=== PATIENT | female | born 1975 | race Caucasian/White ===

== ENCOUNTER 2023-06-21 20:02 | Outpatient (REF) | payer OTHER, SELFPAY ==
[2023-06-28 08:07] LABS: Age Gdln ACOG Testing Note (.); HPV Aptima Negative (Negative); IGP, Aptima HPV, rfx 16/18,45 Note (.)
== END 2023-06-21 20:03 | disposition home or self-care (01) ==
LOC: LAB 20:02
PROVIDERS: Visit Provider Physician Assistant
DX: Z01.419 Encounter for gynecological examination (general) (routine) without abnormal findings (principal)
CPT/HCPCS: 87624; G0145

== ENCOUNTER 2023-06-28 08:56 | Outpatient (OUT) | payer OTHER, SELFPAY ==
--- NOTE | 2023-06-28 | US_ITS ---
[address] [address] Patient Name: EDD ALVA MRN: [id number] date: 1975 Sex: F Assigned Patient Location: Current Patient Location: Accession/Order Number: [id number] Exam Date: 06/28/2023 08:57 Report Date: 06/28/2023 09:46 At the request of: ROBERTO CAMARENA Procedure: US pelvis w/ transvaginal EXAMINATION: US pelvis w/ transvaginal HISTORY: LOWER PELVIC PAIN R10.2 COMPARISON: No relevant comparison available. TECHNIQUE: Transabdominal and/or transvaginal sonographic examination was performed as indicated by examination type. FINDINGS: UTERUS: Normal size and appearance. Uterus size: 11.9 x 4.0 x 4.4 cm ENDOMETRIUM: Normal homogeneous appearance. Endometrial thickness: 12 mm RIGHT OVARY: Normal size and appearance. Duplex Doppler demonstrates normal waveform and flow; resistive index 0.6. Ovary size: 4.6 x 3.0 x 1.2 cm LEFT OVARY: Contains a dominant follicle. Duplex Doppler demonstrates normal waveform and flow; resistive index 0.8. Ovary size: 3.8 x 3.1 x 2.5 cm CUL-DE-SAC: Unremarkable. No significant free fluid. BLADDER: Unremarkable. OTHER: None. US/US pelvis w/ transvaginal IMPRESSION: 1. Endometrium is 12 mm in thickness which is abnormally thickened for a postmenopausal patient. Correlate with patient history. 2. Incidental dominant follicle within left ovary. Resistive index within left ovary is borderline elevated; nonspecific. Electronically authenticated by: JACKSON PERRY Date: 06/28/2023 09:46
--- NOTE | 2023-06-28 09:39 | XR_ITS ---
The [address] [address] Patient Name: EDD ALVA MRN: [facility]:[id number] date: 1975 Sex: F Assigned Patient Location: US Current Patient Location: US Accession/Order Number: [id number] Exam Date: 06/28/2023 09:40 Report Date: 06/28/2023 10:18 At the request of: ROBERTO CAMARENA Procedure: XR DEXA axial skeleton EXAMINATION: XR DEXA axial skeleton HISTORY: bone pain/hip pain, postmenopausal state COMPARISON: No relevant comparison available. TECHNIQUE: Dual-energy X-ray absorptiometry (DXA) was performed. FINDINGS: SPINE ANALYSIS: Average bone mineral density is 1.108 g/cm2. T-score (standard deviation relative to young adult mean): -0.6 . HIP ANALYSIS: Lowest bone mineral density is within the femoral neck, 0.971 g/cm2. T-score (standard deviation relative to young adult mean): -0.5 . XR/XR DEXA axial skeleton IMPRESSION: World Per Organization Classification: Normal - Low Fracture Risk Electronically authenticated by: JACKSON PERRY Date: 06/28/2023 10:18
== END 2023-06-28 08:57 | disposition home or self-care (01) ==
LOC: US 08:56
PROVIDERS: Visit Provider Obstetrics & Gynecology
DX: R10.2 Pelvic and perineal pain (principal); M25.551 Pain in right hip; M25.552 Pain in left hip
CPT/HCPCS: 76830; 76856; 77080

== ENCOUNTER 2024-06-25 20:57 | Outpatient (REF) | payer OTHER, SELFPAY ==
--- OUTSIDE RECORDS SUMMARY | 2024-06-25 21:00 | XMS_ITS | CCD ---
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 Name Role Phone DR ROBERTO CORONADO Admitting Unavailable DR ROBERTO CORONADO Attending Unavailable DR ROBERTO CORONADO Consulting Unavailable Meena Stevens MD Primary Care Provider Mckayla Mayers NP Unavailable MEENA STEVENS Referring Unavailable MEENA STEVENS Attending Unavailable KATIE STREET Attending Unavailable MEENA STEVENS Attending Unavailable Mckayla Mayers NP Unavailable Allergies Allergy Classification Reported Allergen(s) Allergy Type Date of Onset Reaction(s) Facility (1 source) Penicillins Drug allergy (disorder) [facility] (8 sources) Penicillin G Drug Allergy 12-21-2022 [facility] Medications Current Medications Medication Drug Class(es) Dates Sig (Normalized) Sig (Original) acetaminophen 250 mg / ibuprofen 125 mg oral tablet (8 sources) Nonsteroidal Anti-inflammatory Drug take 125-250 mg by mouth once Ibuprofen-Acetamin ophen (Advil Dual Action) 125-250 MG tablet per tablet Take by mouth. Active Ibuprofen-Acetam inophen (Advil Dual Action) 125-250 MG tablet per tablet Take by mouth. 0 Active doxycycline hyclate 100 mg oral tablet (2 sources) Tetracycline-class Drug Start: 08-16-2023 End: 08-26-2023 doxycycline (Vibra-Tabs) 100 MG tablet Indications: Acute non-recurrent maxillary sinusitis Take 1 tablet (100 mg) by mouth in the morning and 1 tablet (100 mg) before bedtime. Do all this for 10 days. Take with a full glass of water and do not lie down for at least 30 minutes after.. 20 tablet 0 08/16/2023 08/26/2023 Active Multiple Vitamin (multivitamin) capsule (7 sources) take 1 capsule by mouth in the morning Multiple Vitamin (multivitamin) capsule Take 1 capsule by mouth in the morning. Active take 1 capsule by mouth in the m orning Multiple Vitamin (multivitamin) capsule Take 1 capsule by mouth in the morning. 0 Active omeprazole 40 mg delayed release oral capsule (4 sources) Proton Pump Inhibitor Start: 05-03-2024 End: 05-03-2025 take 1 capsule by mouth before mealtime omeprazole (PriLOSEC) [address] capsule Indications: Gastroesophageal reflux disease with esophagitis without hemorrhage Take 1 capsule (40 mg) by mouth in the morning. Take before meals. Do not crush or chew.. 30 capsule 11 05/03/2024 05/03/2025 Active Completed/Discontinued Medications Medication Drug Class(es) Dates Sig (Normalized) Sig (Original) Atogepant (Qulipta) 60 MG tablet (3 sources) Start: 05-02-2023 End: 08-16-2023 take 1 tablet by mouth in the morning Atogepant (Qulipta) 60 MG tablet Indications: Intractable migraine with aura without status migrainosus (CMS/HCC) Take 60 mg by mouth in the morning. 90 tablet 3 05/02/2023 08/16/2023 Discontinued (Therapy completed) Start: 05-02-2023 take 1 tablet by julissa th in the morning Atogepant (Qulipta) 60 MG tablet Indications: Intractable migraine with aura without status migrainosus (CMS/HCC) Take 60 mg by mouth in the morning. 90 tablet 3 05/02/2023 Active meloxicam 15 mg oral tablet (8 sources) Nonsteroidal Anti-inflammatory Drug Start: 01-25-2023 End: 06-25-2024 take 1 tablet by mouth in the morning meloxicam (Mobic) 15 MG tablet Indications: Left hip pain Take 1 tablet (15 mg) by mouth in the morning. 30 tablet 3 01/25/2023 06/25/2024 Discontinued Problems Problem Classification Problem Date Documented Date Episodic/Chronic Diabetes mellitus without complication (2 sources) Hyperglycemia; Translations: [Hyperglycemia, unspecified] 05-03-2024 Episodic Esophageal disorders (2 sources) Gastro-esophageal reflux disease with esophagitis; Translations: [Gastroesophageal reflux disease with esophagitis without hemorrhage] 05-03-2024 Chronic Headache; including migraine (12 sources) Refractory migraine with aura; Translations: [Migraine with aura, intractable, without status migrainosus] Onset: 12-21-2022 12-21-2022 Chronic Immunizations and screening for infectious disease (1 source) Encounter for screening for human papillomavirus (HPV); Translations: [ENC SCREENING HUMAN PAPILLOMAVIRUS] Onset: 06-12-2022 Episodic Menstrual disorders (1 source) Dysmenorrhea; Translations: [Dysmenorrhea, unspecified] 06-25-2024 Chronic Osteoarthritis (2 sources) Osteoarthritis of multiple joints ; Translations: [Polyosteoarthritis, unspecified] 05-03-2024 Chronic Other connective tissue disease (2 sources) Trochanteric bursitis; Translations: [Trochanteric bursitis, left hip] 05-03-2024 Episodic Other endocrine disorders (1 source) Polycystic ovary syndrome; Translations: [Polycystic ovarian syndrome] 06-25-2024 Chronic Other lower respiratory disease (2 sources) Cough; Translations: [Acute cough] 08-16-2023 Episodic Other screening for suspected conditions (not mental disorders or infectious disease) (5 sources) Encounter for screening for malignant neoplasm of cervix; Translations: [Patient encounter status] Onset: 06-07-2022 Episodic Other upper respiratory infections (2 sources) Acute maxillary sinusitis; Translations: [Acute maxillary sinusitis, unspecified] 08-16-2023 Episodic Results Test Name Value Interpretation Reference Range Facility Laboratory - Microbiology an d Antimicrobial susceptibilityon 08-16-2023 SARS-CoV-2 (COVID-19) RNA TREVON+probe Ql (Unsp spec) Negative [facility] No Panel Informationon 08-16 FLU A Negative [facility] FLU B Negative [facility] Interpretation and review of laboratory results Normal [facility] BI MAMMOGRAM SCREENING TOMOS YNTHESIS BILATERALon 05-18-2023 BI MAMMOGRAM SCREENING TOMOSYNTHESIS BILATERAL This is a summary report. The complete report is available in the patient's medical record. If you cannot access the medical record, please contact the sending organization for a detailed fax or copy. EXAMINATION: BI MAMMOGRAM SCREENING TOMOSYNTHESIS BILATERAL CLINICAL HISTORY: screening COMPARISON: April 05, 2022, March 30, 2021. RESULT: Digital mammography and 3D tomosynthesis of bilateral breasts was performed. There are scattered areas of fibroglandular density. There is no suspicious mass, asymmetry, architectural distortion, or calcification. Overall appearance stable. IMPRESSION: BIRADS 1 - Negative. Follow-up: Routine Screening Mammography. Board Certified Radiologists. Accredited by the ACR and FDA. MAMMOGRAPHY IS VERY IMPORTANT TO YOUR HEALTH. THE [employer] SOCIET[employer] GUIDELINES RECOMMEND THAT WOMEN 40 YEARS OF AGE AND OLDER SHOULD HAVE A MAMMOGRAM EVERY YEAR. A REMINDER LETTER WILL BE SENT AT THE APPROPRIATE TIME. THIS FACILITY UTILIZES A REMINDER SYSTEM TO ENSURE ALL PATIENTS RECEIVE REMINDER NOTIFICATIONS AT THE APPROPRIATE TIME BASED ON THE RECOMMENDATIONS OF THIS EXAM. THIS INCLUDES REMINDERS FOR ROUTINE SCREENING MAMMOGRAMS, DIAGNOSTIC MAMMOGRAMS IN WHICH THE PATIENT IS ASKED TO RETURN FOR ADDITIONAL VIEWS, OR OTHER BREAST IMAGING INTERVENTIONS WHEN APPROPRIATE. THE PATIENT WILL BE PLACED IN THE APPROPRIATE REMINDER SYSTEM INCLUDING A REMINDER AT THE APPROPRIATE TIME FOR ANY PENDING ADDITIONAL VIEWS. TRANSCRIBED BY: ELECTRONICALLY SIGNED BY: Carrington Godinez MD Normal Not Available PAP ACOG PANEL 2: 30 to 65on 06-15-2022 . . Normal [facility] Comment on above: Result Comment: Perf ormed at: WB Performed By: #### [id number] #### [facility] [address] [place] [address] Dr. Олег Dan Age Gdln ACOG Testing 30-65 Normal [facility] Comment on above: Performed By: #### [id number] #### [facility] [address] [address] [address] Олег Dan DIAGNOSIS: Comment Normal [facility] Comment on above: Result Comment: NEGA TIVE FOR INTRAEPITHELIAL LESION OR MALIGNANCY. Performed at: WB Performed By: #### [id number] #### [facility] [address] [address] [address] Олег Dan HPV Aptima Negative Normal Negative [facility] Comment on above: Result Comment: This nucleic acid amplification test detects fourteen high-risk HPV types (16,18,31,33,35,39,45,51,52,56,58,59,66,68) without differentiation. Performed at: =G Performed By: #### [id number] #### [facility] [address] [address] [address] Олег Dan HPV Genotype Reflex Comment Normal [facility] Comment on above: Result Comment: Crit eria not met, HPV Genotype not performed. Performed at: WB Performed By: #### [id number] #### [facility] [address] [place] [address] Dr. Олег Dan Methodology: Comment Normal [facility] Comment on above: Result Comment: This liquid based ThinPrep(R) pap test was screened with the use of an image guided system. Performed at: WB Performed By: #### [id number] #### [facility] [address] [address] [address] Олег Dan Note: Comment Normal [facility] Comment on above: Result Comment: The Pap smear is a screening test designed to aid in the detection of premalignant and malignant conditions of the uterine cervix. It is not a diagnostic procedure and should not be used as the sole means of detecting cervical cancer. Both false-positive and false-negative reports do occur. . Performed at: WB Performed By: #### [id number] #### [facility] [address] [address] [address] Олег Dan Performed by: Comment Normal [facility] Comment on above: Result Comment: Bhavana Hernandes, Insert Cutter Performed at: WB Performed By: #### [id number] #### [facility] [address] [place] [address] Dr. Олег Dan Specimen adequacy: Comment Normal [facility] Comment on above: Result Comment: Sati sfactory for evaluation. Endocervical and/or squamous metaplastic cells (endocervical component) are present. Performed at: WB Performed By: #### [id number] #### [facility] [address] [place] [address] Dr. Олег Dan SCREENING MAMMOGRAM W/JANIS, BILATERAL*on 04-05-2022 SCREENING MAMMOGRAM W/JANIS, BILATERAL* COMPARISON: Dating back to March 30, 2021 and March 20 and 2019. TECHNIQUE: 2D and 3D Tomosynthesis of the right and left breasts was performed. FINDINGS: Breast composition demonstrates scattered fibroglandular densities. Overall appearance stable. No suspicious microcalcifications, dominant mass lesions, or distortion is present. IMPRESSION: BI-RADS 1- Negative Mammogram Board Certified Radiologist. Accredited by the ACR and FDA. MAMMOGRAPHY IS VERY IMPORTANT TO YOUR HEALTH. THE CURRENT [employer] [employer] OF [employer] AND [employer] CANC[employer] NETWORK GUIDELINES RECOMMENDS ANNUAL MAMMOGRAPHY BEGINNING AT AGE 40 THIS FACILITY USES A REMINDER SYSTEM TO ENSURE ALL PATIENTS RECEIVE REMINDER NOTIFICATIONS AT THE APPROPRIATE TIME BASED ON THE RECOMMENDATIONS OF THIS EXAM. Report reported and signed by Carrington Godinez on 04/05/2022 1529 Normal [facility] Specialist Vital Signs Date Time Vital Sign Value Performing Clinician Dre oconnor 06-25-2024 15:25-0500 Body mass index (BMI) [Ratio] 28.49 kg/m2 Katie FUNK Work Phone: [facility] 06-25-2024 15:25-0500 Body weight 68.4 kg Katie FUNK Work Phone: [facility] 06-25-2024 15:25-0500 Diastolic blood pressure 76 mm[Hg] Katie FUNK Work Phone: [facility] 06-25-2024 15:25-0500 Systolic blood pressure 110 mm[Hg] Katie FUNK Work Phone: [facility] 05-03-2024 14:17-0400 Body height 154.9 cm Meena Stevens MD Work Phone: [facility] 05-03-2024 14:17-0400 Body mass index (BMI) [Ratio] 28.76 kg/m2 Meena Stevens MD Work Phone: [facility] 05-03-2024 14:17-0400 Body weight 69.04 kg Meena Stevens MD Work Phone: [facility] 05-03-2024 14:17-0400 Diastolic blood pressure 76 mm[Hg] Meena Stevens MD Work Phone: [facility] 05-03-2024 14:17-0400 Heart rate 89 /min Meena Stevens MD Work Phone: [facility] 05-03-2024 14:17-0400 Respiratory rate 16 /min Meena Stevens MD Work Phone: [facility] 05-03-2024 14:17-0400 SaO2% (BldA) [Mass fraction] 99 % Meena Stevens MD Work Phone: [facility] 05-03-2024 14:17-0400 Systolic blood pressure 120 mm[Hg] Meena Stevens MD Work Phone: [facility] 08-16-2023 14:45-0500 Body height 154.9 cm Meena Stevens MD Work Phone: [facility] 08-16-2023 14:45-0500 Body mass index (BMI) [Ratio] 30.99 kg/m2 Meena Stevens MD Work Phone: [facility] 08-16-2023 14:45-0500 Body temperature 98.49 [degF] Meena Stevens MD Work Phone: [facility] 08-16-2023 14:45-0500 Body weight 74.39 kg Meena Stevens MD Work Phone: [facility] 08-16-2023 14:45-0500 Diastolic blood pressure 86 mm[Hg] Meena Stevens MD Work Phone: [facility] 08-16-2023 14:45-0500 Heart rate 88 /min Meena Stevens MD Work Phone: [facility] 08-16-2023 14:45-0500 Respiratory rate 16 /min Meena Stevens MD Work Phone: [facility] 08-16-2023 14:45-0500 SaO2% (BldA) [Mass fraction] 98 % Meena Stevens MD Work Phone: [facility] 08-16-2023 14:45-0500 Systolic blood pressure 136 mm[Hg] Meena Stevens MD Work Phone: [facility] Encounters Encounter Date Encounter Type Care Provider Facility Start: 06-25-2024 End: 06-25-2024 Patient encounter procedure Katie FUNK Work Phone: [facility] [employer] Work Phone: Start: 06-25-2024 End: 06-25-2024 Periodic preventive med est patient 40-64yrs Katie FUNK Work Phone: [facility] Comment on above: PCOS (polycystic ova evelyn syndrome) (Primary Dx); Well woman exam with routine gynecological exam; Breast cancer screening by mammogram; Dysmenorrhea Start: 06-25-2024 End: 06-25-2024 Bamboo flowsheet Katie FUNK Work Phone: [facility] Start: 06-25-2024 End: 06-25-[address] PA Work Phone: [facility] Start: 05-03-2024 End: 05-03-2024 Patient encounter status Meena Stevens MD Work Phone: [facility] Work Phone: Start: 05-03-2024 End: 05-03-2024 Periodic preventive med est patient 40-64yrs Meena Stevens MD Work Phone: [facility] Comment on above: Routine general medi lilian examination at a health care facility (Primary Dx); Intractable migraine with aura without status migrainosus (CMS/HCC); Greater trochanteric bursitis of left hip; Hyperglycemia; Osteoarthritis of multiple joints, unspecified osteoarthritis type; Gastroesophageal reflux disease with esophagitis without hemorrhage Start: 05-03-2024 End: 05-03-2024 ambulatory MEENA STEVENS Not Available Start: 05-03-2024 End: 05-03-2024 Bamboo flowsheet Meena Stevens MD Work Phone: [facility] Start: 05-03-2024 End: 05-03-2024 Bamboo flowsheet Meena Stevens MD Work Phone: [facility] Start: 08-16-2023 End: 08-16-2023 Office outpatient visit 15 minutes Meena Stevens MD Work Phone: [facility] Comment on above: Acute non-recurrent maxillary sinusitis (Primary Dx); Acute cough; Other migraine without status migrainosus, not intractable (CMS/HCC) Start: 08-16-2023 End: 08-16-2023 ambulatory MEENA STEVENS Not Available Start: 08-16-2023 Bamboo flowsheet Meena Stevens MD Work Phone: [facility] Start: 08-16-2023 Bamboo flowsheet Meena Stevens MD Work Phone: [facility] Start: 06-21-2023 End: 06-21-[address] Not Available Start: 05-18-2023 End: 05-18-2023 ambulatory MEENA STEVENS Not Available Start: 06-07-2022 End: 06-07-[address] ROBERTO CORONADO Facility:[facility] Procedures Date Procedure Procedure Detail Performing Clinician Start: 08-16-2023 STATUS COVID-19/FLU Mar y Willa Stevens MD Work Phone: Start: 05-18-2023 Mammography Meena Stevens MD Work Phone: Start: 06-07-2022 Microscopic observat ion [Identifier] in Cervix by Cyto stain Meena Stevens MD Work Phone: Plan of Treatment Date Care Activity Detail Author Start: 06-07-2027 Screening for malign ant neoplasm of cervix [facility] Start: 05-07-2026 Screening for malign ant neoplasm of colon [facility] Start: 12-31-2024 Influenza vaccination Influenza Vacc ine (#1) [facility] Comment on above: Postponed from 03/04 (Patient Refused) Start: 07-05-2024 End: 07-05-2024 Professional / ancillary services management 07/05/2024 10:30 AM EST Ancillary Procedure [facility] [address] [place] [address] [place] [id number] [facility] Start: 06-25-2024 End: 06-25-2024 Patient encounter procedure [facility] Comment on above: Arrived Start: 06-25-2024 End: 06-25-2025 DHEA DHEA Lab Routine PCOS (polycystic ovarian syndrome) Expected: 06/25/2024 (Approximate), Expires: 06/25/2025 [facility] Comment on above: Expected: 06/25/2024 (Approximate), Expires: 06/25/2025 Start: 06-25-2024 End: 08-26-2025 MG Breast - bilateral Screening Bilateral screening mammogram Imaging Routine Breast cancer screening by mammogram Expected: 06/25/2024, Expires: 08/26/2025 [facility] Work Phone: Comment on above: Expected: 06/25/2024 , Expires: 08/26/2025 Start: 06-25-2024 End: 06-25-2025 US for US PELVIS-TRANSVAG IF INDICATED Imaging Routine PCOS (polycystic ovarian syndrome) Expected: 06/25/2024 (Approximate), Expires: 06/25/2025 [facility] Comment on above: Expected: 06/25/2024 (Approximate), Expires: 06/25/2025 Start: 05-18-2024 Screening for malign ant neoplasm of breast Mammogram [facility] Start: 05-03-2024 End: 05-03-2024 Patient encounter procedure 05/03/2024 2:20 PM EDT [facility] [address] [place] [address] Meena Stevens MD [address] [place] [address] [facility] Comment on above: Arrived Start: 05-03-2024 End: 05-03-2025 CBC W Auto Differential panel - Blood CBC and differential Lab Routine Routine general medical examination at a health care facility Expected: 05/03/2024 (Approximate), Expires: 05/03/2025 [facility] Comment on above: Expected: 05/03/2024 (Approximate), Expires: 05/03/2025 Start: 05-03-2024 End: 05-03-2025 Comprehensive metabolic 2000 panel - Serum or Plasma Comprehensive metabolic panel Lab Routine Routine general medical examination at a health care facility Expected: 05/03/2024, Expires: 05/03/2025 [facility] Work Phone: Comment on above: Expected: 05/03/2024 , Expires: 05/03/2025 Start: 05-03-2024 End: 05-03-2025 Hemoglobin A1c/Hemoglobin.total in Blood Hemoglobin A1c Lab Routine Hyperglycemia Expected: 05/03/2024 (Approximate), Expires: 05/03/2025 [facility] Comment on above: Expected: 05/03/2024 (Approximate), Expires: 05/03/2025 Start: 05-03-2024 End: 05-03-2025 Lipid 1996 panel - Serum or Plasma Lipid panel Lab Routine Routine general medical examination at a health care facility Expected: 05/03/2024 (Approximate), Expires: 05/03/2025 [facility] Comment on above: Expected: 05/03/2024 (Approximate), Expires: 05/03/2025 Start: 03-04-2024 Influenza vaccination Influenza Vacc ine (#1) [facility] Start: 01-01-2024 Influenza vaccination Influenza Vacc ine (#1) [facility] Comment on above: Postponed from 03/04 (Patient Refused) Start: 08-16-2023 End: 08-16-2023 Patient encounter procedure 08/16/2023 2:40 PM EST [facility] [address] [place] [id number] Meena Stevens MD [address] [place], [place] [id number] [facility] Comment on above: Arrived Start: 11-24-2022 Screening for malign ant neoplasm of colon [facility]OB[facility] Start: 1975 Screening for malign ant neoplasm of colon [facility] CBC W Auto Different ial panel - Blood CBC and differential Lab Routine PCOS (polycystic ovarian syndrome) Ordered: 06/25/2024 [facility] Comment on above: Ordered: 06/25/2024 DHEA-sulfate DHEA-sulfate Lab Routine PCOS (polycystic ovarian syndrome) Ordered: 06/25/2024 [facility] Comment on above: Ordered: 06/25/2024 Follicle stimulating hormone Follicle stimulating hormone Lab Routine PCOS (polycystic ovarian syndrome) Ordered: 06/25/2024 [facility] Comment on above: Ordered: 06/25/2024 Hemoglobin A1c/Hemoglobin.total in Blood Hemoglobin A1c Lab Routine Dysmenorrhea Ordered: 06/25/2024 [facility] Comment on above: Ordered: 06/25/2024 Luteinizing hormone Luteinizing hormone Lab Routine PCOS (polycystic ovarian syndrome) Ordered: 06/25/2024 [facility] Comment on above: Ordered: 06/25/2024 THIN PREP TIS PAP AN D HR HPV DNA THIN PREP TIS PAP AND HR HPV DNA Pathology and Cytology Routine Well woman exam with routine gynecological exam Ordered: 06/25/2024 [facility] Comment on above: Ordered: 06/25/2024 Thyrotropin [Units/volume] in Serum or Plasma TSH Lab Routine PCOS (polycystic ovarian syndrome) Ordered: 06/25/2024 [facility] Comment on above: Ordered: 06/25/2024 Thyroxine (T4) free [Mass/volume] in Serum or Plasma T4, free Lab Routine PCOS (polycystic ovarian syndrome) Ordered: 06/25/2024 [facility] Comment on above: Ordered: 06/25/2024 Payers Date Payer Category Payer Private Health Insurance [id number] 2023 Private Health Insurance [id number] 1975 Unknown [id number] 1975 Unknown [id number] 1973 Unknown [id number] 1973 Unknown [id number] 1973 Unknown [id number] 1959 Private Health Insurance [id number] Social History Date Type Detail Facility Start: 12-31-2022 Tobacco smoking status MNIS Ex-smoke r [facility] History of tobacco use Current smoker [facility] History of tobacco use Cigarette Smoker [facility] Start: 12-31-2022 Tobacco use and exposure Smoke less tobacco non-user [facility] Start: 08-01-2023 End: 06-25-2024 Alcohol intake Current drinker of alcohol (finding) [facility] Start: 05-02-2023 End: 05-03-2024 [facility] of [facility] Start: 05-02-2023 End: 05-03-2024 Humiliation, Afraid, Rape, and Kick questionnaire [HARK] [facility] Within the last year , have you been afraid of your partner or ex-partner? No [facility] How often do you att end restorationism or sabianism services? Patient refused [facility] Are you now , , , , never or living with a partner? [facility] How often to you hav e a drink containing alcohol? Monthly or less [facility] How many standard dr inks containing alcohol do you have on a typical day? 1 or 2 [facility] How often do you hav e 6 or more drinks on 1 occasion? Never [facility] How hard is it for y ou to pay for the very basics like food, housing, medical care, and heating Somewhat hard [facility] Do you feel stress - tense, restless, nervous, or anxious, or unable to sleep at night because your mind is troubled all the time - these days [OSQ] Only a little [facility] (I/We) worried wheth er (my/our) food would run out before (I/we) got money to buy more. Never true [facility] Start: 12-31-2022 Alcohol Comment caffeine: 1-2 cups per day [facility] Start: 1975 Sex Assigned At Not on file [facility] History of Present illness Narrative 06-25-2024 BLESSING Hector - 06/25/2024 3:00 PM EST Note Date & Type Note Facility 06-25-2024 History of Presen t illness Narrative Reason for Appointment: Patient ID: Rahda Yun is a 49 y.o. female who presents for Well Women Visit Patient presents today for Annual Exam. MEDICATIONS Current Outpatient Medications Medication Instructions Ibuprofen-Acetaminophen (Advil Dual Action) 125-250 MG tablet per tablet Take by mouth. Multiple Vitamin (multivitamin) capsule 1 capsule, Daily omeprazole (PRILOSEC) 40 mg, Oral, Daily before breakfast, Do not crush or chew. ALLERGIES Allergies Allergen Reactions Penicillin G Other Reaction(s): lips swell PROBLEMS Active Ambulatory Problems Diagnosis Date Noted Intractable migraine with aura without status migrainosus ([facility]) 12/21/2022 Resolved Ambulatory Problems Diagnosis Date Noted No Resolved Ambulatory Problems Past Medical History: Diagnosis Date Breast cancer screening by mammogram 05/18/2023 Hot flashes Hypoglycemia Obesity Pelvic pain HISTORY PAST MEDICAL HISTORY SOCIAL HISTORY Past Medical History: Diagnosis Date Breast cancer screening by mammogram 05/18/2023 neg Hot flashes Hypoglycemia Obesity Pelvic pain Social History Tobacco Use Smoking status: Former Types: Cigarettes Smokeless tobacco: Never Substance Use Topics Alcohol use: Yes Comment: caffeine: 1-2 cups per day Drug use: Never FAMILY HISTORY Family History Problem Relation Name Age of Onset Cancer Mother Cervical cancer Mother Hypertension Father Diabetes Paternal Grandfather SURGICAL HISTORY Past Surgical History: Procedure Laterality Date SECTION, LOW TRANSVERSE x2 TUBAL LIGATION REVIEW OF SYSTEMS Review of Systems: Review of Systems Constitutional: Negative. HENT: Negative. Eyes: Negative. Respiratory: Negative. Cardiovascular: Negative. Gastrointestinal: Negative. Genitourinary: Negative. Musculoskeletal: Negative. Skin: Negative. Neurological: Negative. All other systems reviewed and are negative. Hematological: Negative. Endocrine: Negative. Allergic/Immunologic: Negative. OBJECTIVE Objective: Physical Exam Constitutional: Appearance: Normal appearance. Genitourinary: Right Adnexa: not tender and no mass present. Left Adnexa: not tender and no mass present. No cervical discharge. Breasts: Breasts are soft. Right: Normal. Left: Normal. HENT: Head: Normocephalic. Nose: Nose normal. Mouth/Throat: Mouth: Mucous membranes are moist. Cardiovascular: Rate and Rhythm: Normal rate. Pulmonary: Effort: Pulmonary effort is normal. Abdominal: General: Bowel sounds are normal. Palpations: Abdomen is soft. Musculoskeletal: General: Normal range of motion. Cervical back: Normal range of motion. Neurological: General: No focal deficit present. Mental Status: She is alert. Skin: General: Skin is warm and dry. Psychiatric: Mood and Affect: Mood normal. Vitals and nursing note reviewed. Exam conducted with a correctional program officer present. Vitals: Estimated body mass index is 28.49 kg/m as calculated from the following: Height as of 05/03/24: 5' 1 . Weight as of this encounter: 150 lb 12.8 oz. BP: 110/76 Patient's last menstrual period was 05/26/2024. ASSESSMENT & PLAN ICD-10-CM 1. PCOS (polycystic ovarian syndrome) E28.2 TSH T4, free CBC and differential Follicle stimulating hormone Luteinizing hormone DHEA-sulfate DHEA US PELVIS-TRANSVAG IF INDICATED DHEA 2. Well woman exam with routine gynecological exam Z01.419 THIN PREP TIS PAP AND HR HPV DNA 3. Breast cancer screening by mammogram Z12.31 Bilateral screening mammogram Bilateral screening mammogram 4. Dysmenorrhea N94.6 Hemoglobin A1c Annual: Patient presents today for an annual exam. Patient states she is doing well states having irregular, shortened cycles Pap was obtained without difficulty and patient given mammogram order to have scheduled/obtained. Orders Placed This Encounter Procedures Bilateral screening mammogram US PELVIS-TRANSVAG IF INDICATED TSH T4, free CBC and differential Follicle stimulating hormone Luteinizing hormone Hemoglobin A1c DHEA-sulfate DHEA Follow Up: Patient given orders for lab and ultrasound, pt to follow up for endometrial biopsy with DR Coronado in next several weeks Patient is to return in one year for annual unless needed otherwise. Documented by BLESSING Hector on behalf of: BLESSING Hector documented in this encounter [facility] History of Present illness Narrative 05-03-2024 Meena Stevens MD - 05/03/2024 2:20 PM EDT Note Date & Type Note Facility 05-03-2024 History of Presen t illness Narrative Radha Yun is a 49 y.o. female presents with chief complaint of Annual Exam HPI: HPI History of Present Illness The patient is a 49-year-old female who presents for a routine visit. She reports experiencing hand pain She suspects the onset of arthritis due to the nature of her work. . Instead, she uses Advil for pain relief, which she finds effective. Hip pain and migraine headaches a re much better She also mentions that her menstrual cycle is delayed by 2 weeks. She experiences pain in her hands, which intensifies with movement and sometimes occurs even when she is at rest. She does not engage in heavy lifting but performs numerous small tasks with her hands. She reports no numbness in her fingers, except when exposed to cold temperatures. She does not use carpal tunnel splints. She takes Motrin only when in pain, as she is mindful of her stomach health. She reports no stomach discomfort from Motrin. She also reports an occasional taste of blood in her mouth, despite a recent dental check-up revealing no issues. She works between 40 to 50 hours a week She did not fast today due to her low blood sugar levels. She consumes one cup of coffee in the morning and does not drink soda. She experiences heart burn several times per week SUBJECTIVE: MEDICATIONS: Current Outpatient Medications Medication Instructions Ibuprofen-Acetaminophen (Advil Dual Action) 125-250 MG tablet per tablet Oral meloxicam (MOBIC) 15 mg, Oral, Daily Multiple Vitamin (multivitamin) capsule 1 capsule, Oral, Daily ALLERGIES: Allergies Allergen Reactions Penicillin G Other Reaction(s): lips swell SURGICAL HISTORY: Past Surgical History: Procedure Laterality Date SECTION, LOW TRANSVERSE x2 TUBAL LIGATION FAMILY HISTORY: Family History Problem Relation Name Age of Onset Cancer Mother Cervical cancer Mother Hypertension Father Diabetes Paternal Grandfather SOCIAL HISTORY: Social History Tobacco Use Smoking status: Former Types: Cigarettes Smokeless tobacco: Never Substance Use Topics Alcohol use: Yes Comment: caffeine: 1-2 cups per day Drug use: Never Depression: Not on file REVIEW OF SYMPTOMS: Review of Systems Respiratory: Negative. Cardiovascular: Negative. OBJECTIVE: Visit Vitals OB Status Having periods Smoking Status Former Visit Vitals BP 120/76 (BP Location: Left arm, Patient Position: Sitting, BP Cuff Size: Adult) Pulse 89 Resp 16 Ht 5' 1 Wt 152 lb 3.2 oz SpO2 99% BMI 28.76 kg/m OB Status Having periods Smoking Status Former BSA 1.72 m Physical Exam Constitutional: Appearance: Normal appearance. She is normal weight. HENT: Head: Normocephalic and atraumatic. Nose: Nose normal. Mouth/Throat: Mouth: Mucous membranes are moist. Eyes: Pupils: Pupils are equal, round, and reactive to light. Cardiovascular: Rate and Rhythm: Normal rate and regular rhythm. Heart sounds: No murmur heard. Pulmonary: Effort: Pulmonary effort is normal. Breath sounds: Normal breath sounds. No wheezing or rhonchi. Musculoskeletal: General: No swelling. Cervical back: Normal range of motion and neck supple. Right lower leg: No edema. Left lower leg: No edema. Skin: General: Skin is warm and dry. Findings: No rash. Neurological: Mental Status: She is alert and oriented to person, place, and time. Sensory: No sensory deficit. Gait: Gait normal. Psychiatric: Mood and Affect: Mood normal. Thought Content: Thought content normal. Judgment: Judgment normal. ASSESSMENT AND PLAN: Assessment/Plan Problem List Items Addressed This Visit Intractable migraine with aura without status migrainosus (CMS/HCC) Other Visit Diagnoses Routine general medical examination at a health care facility - Primary Relevant Orders Comprehensive metabolic panel CBC and differential Lipid panel Greater trochanteric bursitis of left hip Hyperglycemia Relevant Orders Hemoglobin A1c Osteoarthritis of multiple joints, unspecified osteoarthritis type Gastroesophageal reflux disease with esophagitis without hemorrhage Relevant Medications omeprazole (PriLOSEC) [address] capsule As of your wellness visit , the medical team reviewed your chart and chronic problems and treatment. Your information regarding healthy diet, activity, immunizations, depression screening, and risk factors for disease were reviewed or addressed Assessment & Plan 1. Hip Pain. resolved 2. Potential Arthritis. She reports pain in her hands, which could be due to arthritis. There are no significant arthritis changes observed yet. She was advised to continue taking Advil as needed for pain relief. 3. Gastroesophageal Reflux Disease (GERD). The taste of blood she experiences may be due to reflux. Excessive heartburn can lead to precancerous changes in the esophagus. Coffee consumption can also irritate the stomach and contribute to reflux. A prescription for omeprazole was provided, to be taken every morning. She was advised to monitor her caffeine intake and consider switching to low acidic coffee. 5. Blood Work. Blood work was ordered to be done at her workplace. Follow-up Patient will follow up in 1 year or sooner if any problems arise. documented in this encounter [facility] History of Present illness Narrative 08-16-2023 Meena Stevens MD - 08/16/2023 2:40 PM EST Note Date & Type Note Facility 08-16-2023 History of Presen t illness Narrative Radha Yun is a 48 y.o. female presents with chief complaint of URI (Pt had covid around [place]. She has been sick ever since. Pt thinks that she ran a fever yesterday and today when she coughs or laughs her chest hurts. Pt's cough is productive at times w/green phlegm. Her cough is less productive this week. Pt has been taking mucinex on and off. ) HPI: HPI SUBJECTIVE: MEDICATIONS: Current Outpatient Medications Medication Instructions Ibuprofen-Acetaminophen (Advil Dual Action) 125-250 MG tablet per tablet Oral meloxicam (MOBIC) 15 mg, Oral, Daily Multiple Vitamin (multivitamin) capsule 1 capsule, Oral, Daily REVIEW OF SYMPTOMS: Review of Systems Constitutional: Negative. Cardiovascular: Negative. Gastrointestinal: Negative. Musculoskeletal: Negative. Neurological: Negative. Psychiatric/Behavioral: Negative. OBJECTIVE: Visit Vitals BP 136/86 (BP Location: Right arm, Patient Position: Sitting, BP Cuff Size: Small adult) Pulse 88 Temp 98.5 F (Oral) Resp 16 Ht 5' 1 Wt 164 lb BMI 30.99 kg/m OB Status Having periods Smoking Status Former BSA 1.79 m Physical Exam Constitutional: Appearance: Normal appearance. She is normal weight. HENT: Head: Normocephalic and atraumatic. Right Ear: Tympanic membrane and ear canal normal. Left Ear: Tympanic membrane and ear canal normal. Nose: Congestion and rhinorrhea present. Mouth/Throat: Mouth: Mucous membranes are moist. Pharynx: Oropharyngeal exudate present. Eyes: Pupils: Pupils are equal, round, and reactive to light. Cardiovascular: Rate and Rhythm: Normal rate and regular rhythm. Heart sounds: No murmur heard. Pulmonary: Effort: Pulmonary effort is normal. Breath sounds: Normal breath sounds. No wheezing or rhonchi. Musculoskeletal: General: No swelling. Cervical back: Normal range of motion and neck supple. Right lower leg: No edema. Left lower leg: No edema. Lymphadenopathy: Cervical: No cervical adenopathy. Skin: General: Skin is warm and dry. Findings: No rash. Neurological: Mental Status: She is oriented to person, place, and time. Sensory: No sensory deficit. Gait: Gait normal. Psychiatric: Mood and Affect: Mood normal. Thought Content: Thought content normal. Judgment: Judgment normal. ASSESSMENT AND PLAN: Assessment/Plan Problem List Items Addressed This Visit None Visit Diagnoses Acute non-recurrent maxillary sinusitis - Primary Fludis motrin rest Relevant Medications doxycycline (Vibra-Tabs) 100 MG tablet Acute cough Relevant Orders STATUS COVID-19/FLU (Completed) Other migraine without status migrainosus, not intractable (CMS/HCC) Stable 2/ month. Does not want another prevention mediacation but need fmla for 2/ month Will complete fmla form for 2days per month x 1 year Fmla for migraine 2/ month x 1 year documented in this encounter [facility] Evaluation note Note Date & Type Note Facility Evaluation note Diagnosis Acute non-recurrent maxillary sinusitis- Primary Acute cough Other migraine without status migrainosus, not intractable (CMS/HCC) documented in this encounter [facility] Evaluation note Note Date & Type Note Facility Evaluation note Diagnosis Routine general medical examination at a health care facility- Primary Intractable migraine with aura without status migrainosus (CMS/HCC) Greater trochanteric bursitis of left hip Hyperglycemia Other abnormal glucose Osteoarthritis of multiple joints, unspecified osteoarthritis type Gastroesophageal reflux disease with esophagitis without hemorrhage documented in this encounter [facility] Evaluation note Note Date & Type Note Facility Evaluation note Diagnosis PCOS (polycystic ovarian syndrome)- Primary Polycystic ovaries Well woman exam with routine gynecological exam Routine gynecological examination Breast cancer screening by mammogram Dysmenorrhea documented in this encounter [facility] Summary Purpose Family History No Family History Records FoundNo Family History Records FoundNo Family History Records Found Advance Directives No Advanced Directives Records FoundNo Advanced Directives Records FoundNo Advanced Directives Records Found Additional Source Comments INFORMATION SOURCE (unrecogn ized section and content) DATE CREATED AUTHOR 04/06/2022 [facility] dical Specialist DATE CREATED AUTHOR AUTHOR'S ORGANIZ ATION 06/16/2022 [facility] DATE CREATED AUTHOR AUTHOR'S ORGANIZ ATION 05/05/2024 [facility] dical Specialists EPIC Care Teams (unrecognized sec tion and content) Clock [employer] Watch Hands Painter Relationship Specialty Start Date End Date Meena Stevens MD [address] [place], [place] [id number] PCP - General Family Medicine 12/21/22 Mckayla Mayers NP [address] [facility] [place], [place] [id number] Nurse Practitioner Family Medicine 12/21/22 [employer] Painter Relationship Specialty Start Date End Date Meena Stevens MD [address] [place], [place] [id number] PCP - General Family Medicine 12/21/22 Mckayla Mayers, AIRCRA[employer] SPECIALIST [address] [place] [place] [address] Nurse Practitioner Family Medicine 12/21/22 [employer] Painter Relationship Specialty Start Date End Date Meena Stevens MD [address] [place] [place] [address] PCP - General Family Medicine 12/21/22 Mckayla Mayers NP [address] [facility] [place] [address] Nurse Practitioner Family Medicine 12/21/22 [employer] Painter Relationship Specialty Start Date End Date Meena Stevens MD [address] [facility] [place] [address] PCP - General Family Medicine 12/21/22 Mckayla Mayers NP [address] [place] [place] [address] Nurse Practitioner Family Medicine 12/21/22 [employer] Painter Relationship Specialty Start Date End Date Meena Stevens MD [address] [facility] [address] PCP - General Family Medicine 12/21/22 Mckayla Mayers NP [address] [place] [place] [address] Nurse Practitioner Family Medicine 12/21/22 Reason for Visit (unrecogniz ed section and content) Reason Comments URI Pt had covid around [place]. She has been sick ever since. Pt thinks that she ran a fever yesterday and today when she coughs or laughs her chest hurts. Pt's cough is productive at times w/green phlegm. Her cough is less productive this week. Pt has been taking mucinex on and off. Reason Comments Annual Exam Reason Comments Well Women Visit FOR RECORDS PERTAINING TO PATIENTS WHO ARE OR HAVE BEEN ENROLLED IN A CHEMICAL DEPENDENCY/SUBSTANCEABUSE PROGRAM, SOME INFORMATION MAY BE OMITTED. This clinical summary was aggregated from multiple sources. Caution should be exercised in using it in the provision of clinical care. This summary normalizes information from multiple sources, and as a consequence, information in this document may materially change the coding, format and clinical context of patient data. In addition, data may be omitted in some cases. CLINICAL DECISIONS SHOULD BE BASED ON THE PRIMARY CLINICAL RECORDS. [employer] [facility] provides no warranty or guarantee of the accuracy or completeness of information in this document.
[2024-07-03 14:07] LABS: Age Gdln ACOG Testing Note (.); HPV Aptima Negative (Negative); IGP, Aptima HPV, rfx 16/18,45 Note (.)
== END 2024-06-25 20:58 | disposition home or self-care (01) ==
LOC: LAB 20:57
PROVIDERS: Visit Provider Physician Assistant
DX: Z01.419 Encounter for gynecological examination (general) (routine) without abnormal findings (principal)
CPT/HCPCS: 87624; 88175